=== PATIENT | female | born 1955 | race American Indian/Alaskan Native ===

== ENCOUNTER 2022-06-25 09:02 | Day surgery (SDC) | payer MEDICARE ==
[~2022-06-25 09:02] MED LIST: SODIUM CHLORIDE 0.9% 1000 ML 1,000 ML IV SCH
[2022-06-25] MEDS ORDERED: propofoL 200 MG/20 ML VIAL IV ONE ×2 (09:42→10:11)
--- NOTE | 2022-06-25 09:44 | Anesthesia Consultation ---
Anesthesia Consult and Med Hx Date of service: 06/25/22 - Airway Anesthetic Teeth Evaluation: Partials (upper and lower) ROM Head & Neck: Adequate Mental/Hyoid Distance: Adequate Mallampati Class: Class II Intubation Access Assessment: Probably Good - Pre-Operative Health Status ASA Pre-Surgery Classification: ASA2 Proposed Anesthetic Plan: MAC - Pulmonary Hx Smoking: Yes (former smoker quit 30yrs) Hx Respiratory Symptoms: No - Cardiovascular System Hx Hypertension: Yes (took amlodipine this morning) - Central Nervous System CVA: No - Endocrine Hx Renal Disease: No Hx Liver Disease: No Hx Insulin Dependent Diabetes: No Hx Non-Insulin Dependent Diabetes: No Hx Thyroid Disease: No
--- NOTE | 2022-06-25 09:44 | Anesthesia Day of Surgery ---
Anesthesia Day of Surgery - Day of Surgery Patient Examined: Yes Patient H&P Reviewed: Yes Patient is NPO: Yes
[2022-06-25] MEDS ORDERED: LIDOCAINE MPF (2%) 20 MG/1 ML VIAL 5 ML ONE (09:47)
--- NOTE | 2022-06-25 10:36 | Procedure Note ---
Date of procedure: 06/25/22 Pre-op diagnosis: Colon Polyp Screening/ Positive Cologuard Test Post-op diagnosis: other (Solitary Rectal Polyp/ Moderately, Severe Melanosis coli/ Minor,Internal Hemorrhoid) Procedure: Colonoscopy with Cold Snare Polypectomy and Cold Biopsy Anesthesia: MAC Estimated blood loss: minimal Pathology: none Specimen disposition: to lab Condition: stable Disposition: same day (Avoid aspirin and NSAID for 5 days; otherwise resume previous medication and avoid OTC laxatives. F/U in 1 to 2 weeks ([phone] ).)
[2022-06-25 11:09] VITALS: BP 132/67
--- NOTE | 2022-06-25 11:12 | Operative Report ---
DATE OF SURGERY: 06/25/2022 PROCEDURE: Colonoscopy with cold snare polypectomy and cold biopsy. INDICATIONS: This is a 66-year-old -Italian female with a prior history of chronic hepatitis C, who was noted to be positive for her Cologuard test. She underwent a colonoscopy to check for any colon polyps. DESCRIPTION OF PROCEDURE: Procedure was done after getting informed consent with MAC anesthesia. Initial rectal examination was unremarkable. The instrument was passed through the rectum onto the cecum, which was identified by the ileocecal valve and appendiceal orifice. Visualization was fair. The patient had moderately severe melanosis coli, which also impaired visualization of it. Cecum, ascending colon, transverse colon, descending colon and sigmoid showed normal mucosa. There was a solitary small 8-9 mm sessile polyp noted in the rectum, close to the rectosigmoid area. This was removed by cold snare polypectomy and trimmed using a cold biopsy. Initially, there appeared to be another polyp close to it, but it seemed to flatten out and was not removed and could not be seen later, and the rectum showed some minor internal hemorrhoid. There is minimal bleeding from the biopsy site. ASSESSMENT: Colon polyp screening, positive Cologuard test. Solitary small rectal polyp about 8-9 mm that was removed by cold snare polypectomy and trimmed with cold biopsy. 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 PLAN: The patient will be asked to avoid aspirin and aspirin-related products for the next few days. Otherwise, resume previous medication, asked to avoid [id number] laxatives and follow up in the office in 1-2 weeks' time. Procedure was done in the GI lab with assistance of the GI lab team, which included the GI nurse, the wound care technician and with assistance of anesthesia. TID: [id number] RECEIPT: [id number] SUNITA/THAIS
--- NOTE | 2022-06-25 11:29 | Post Anesthesia Evaluation ---
- Post Anesthesia Evaluation Patient Participated: Yes Airway Patent: Yes Stable Respiratory Function: Yes Nausea/Vomiting: No Temp > 96.8F: Yes Pain Manageable: Yes Adequeate Hydration: Yes Anesthesia Complications: No
== END 2022-06-25 11:20 | disposition home or self-care (01) ==
LOC: GIO 09:02
DX: R19.5 Other fecal abnormalities (principal); K62.1 Rectal polyp; K64.8 Other hemorrhoids; I10 Essential (primary) hypertension; Z91.040 Latex allergy status; Z88.8 Allergy status to other drugs, medicaments and biological substances; Z87.891 Personal history of nicotine dependence
CPT/HCPCS: 45385; 88305; J2704; J7030